=== PATIENT | male | born 1975 | race Two or more races ===

== ENCOUNTER 2024-03-18 21:29 | Emergency (ER) | payer BC, OTHER ==
[~2024-03-18] VITALS: Ht 170.2 cm; Wt 90.7 kg
[2024-03-19 00:20] VITALS: BP 112/67; PULSE 114; RESP 18; TEMP 98.5; O2SAT 98
[2024-03-19] MEDS: chlordiazePOXIDE HCL 25 MG CAP PO ONE (00:37)
== END 2024-03-19 00:54 | disposition home or self-care (01) ==
LOC: EDBD 21:29 → ER 21:29
DX: F10.239 Alcohol dependence with withdrawal, unspecified (principal); Y90.8 Blood alcohol level of 240 mg/100 ml or more